=== PATIENT | male | born 1985 | race Caucasian/White ===

== ENCOUNTER 2020-06-22 22:52 | Emergency (ER) | payer OTHER ==
[~2020-06-22] VITALS: Ht 175.3 cm; Wt 79.4 kg
[~2020-06-22 22:52] MED LIST: SEROQUEL 50 MG50 M2 PO; ZOLOFT25 MG PO
[2020-06-23 00:46] VITALS: BP 125/77
== END 2020-06-23 00:49 | disposition home or self-care (01) ==
LOC: ER 22:52
DX: S52.502A Unspecified fracture of the lower end of left radius, initial encounter for closed fracture (principal); M53.3 Sacrococcygeal disorders, not elsewhere classified; F17.210 Nicotine dependence, cigarettes, uncomplicated; W18.39XA Other fall on same level, initial encounter; Y93.89 Activity, other specified; Y92.89 Other specified places as the place of occurrence of the external cause; Y99.8 Other external cause status